=== PATIENT | female | born 2000 | race Caucasian/White ===

== ENCOUNTER 2018-08-21 20:53 | Emergency (ER) | payer OTHER ==
[~2018-08-21] VITALS: Ht 172.7 cm; Wt 69.0 kg
[2018-08-21] MEDS ORDERED: DIPHENHYDRAMINE 25MG CAPSULE PO ONE (23:00)
[2018-08-21] MEDS ORDERED: METHYLPREDNISOLONE SOD SUCC 125 MG/2 ML VIAL IM ONE (23:00)
[2018-08-22 00:10] VITALS: BP 127/69
== END 2018-08-22 00:10 | disposition home or self-care (01) ==
LOC: ER 20:53
DX: T78.40XA Allergy, unspecified, initial encounter (principal); H10.9 Unspecified conjunctivitis; X58.XXXA Exposure to other specified factors, initial encounter
CPT/HCPCS: 81025; 96372; 99283; J2930